=== PATIENT | female | born 1970 | race Caucasian/White ===

== ENCOUNTER 2018-10-21 05:17 | Day surgery (SDC) | payer OTHER ==
[~2018-10-21] VITALS: Ht 160 cm; Wt 99.8 kg
[~2018-10-21 05:17] MED LIST: COMBIVENT INH; EXCEDRIN MIGRA1 EAC1 PO; FLEXERIL PO; FLONASE 0.05%50 MCG NASAL; LIPITOR 20 MG T20 M1 PO; METFORMIN HCL500 MG PO; NEURONTIN 300300 M1 PO; OMEPRAZOLE40 MG PO; SYMBICORT160 MCG/4. INH; SYNTHROID100 MC1 PO; TOPROL XL100 MG PO; ZANTAC 150MG T150 MG PO; ZYRTEC10 MG PO
[2018-10-21 10:55] LABS: HEMATOCRIT 43.5 % (37.0-47.0); HEMOGLOBIN 14.9 gm/dL (12.0-15.0)
[2018-10-21 11:00] VITALS: BP 128/88
--- NOTE | 2018-10-21 13:28 | EKG ---
[address] [address] ELECTROCARDIOGRAM REPORT Name: PRETTY ARRIOLA Room #: [address] [place] [address].#: [id number] Admission: 10/21/18 Attend Phys: Cassandra Benson MD, Discharge: Date of : 72 Report #: [id number] THIS REPORT FOR: //name// [facility] Test Date: 2018-10-21 Test Time: 10:50:37 Pat Name: PRETTY ARRIOLA Department: Room: [facility] Gender: F Site Controller: NDIIA : 1970 Requested By: Cassandra Benson Order Number: [id number] MD: Daren Morgan Measurements Intervals [place] Rate: 64 P: 12 IN: 124 QRS: 17 QRSD: 99 T: -7 QT: 421 QTc: 435 Interpretive Statements Sinus rhythm Borderline abnrm T, anterolateral leads Baseline wander in lead(s) I,II,aVR,aVF No previous ECG available for comparison Electronically Signed On 10-21-2018 13:28:19 FLATWORK SUPERVISOR by Daren Morgan [email or web address] <ELECTRONICALLY SIGNED> By: Daren Morgan MD 10/21/18 1328 1050 1050 Daren Morgan MD /EPI
--- NOTE | 2018-10-21 14:52 | NUR ---
PT ARRIVED ON UNIT AT 1430. VS TAKEN IV FLUIDS STARED AND PRN PAIN MED AND N&V MED GIVEN IV PUSH. SISTER AT BEDSIDE
[2018-10-21 20:45] VITALS: BP 130/82
--- NOTE | 2018-10-22 02:56 | NUR ---
PT C/O GEN ABD PAIN,MED ADMINISTERED WITH RELIEF.PT UP ADLIB TO THE BR. ON IV ABX AND IVF ORDERED.ENCOURAGED TO USE I&S WHILE AWAKE.PT ABLE TO MAKE NEEDS KNOWN.CALL LIGHT WITHIN REACH.
--- NOTE | 2018-10-22 03:23 | NUR ---
PT UP ADLIB IN ROOM. ABD PAIN MANAGED WITH IV PAIN MED.5 LAP SITES WITH DERMABOND NOTED.PT NPO AT THIS TIME,MOUTH SWAB ENCOURAGED.PT ABLE TO URINATE 100ML FIRST FOUR HOURS AND STATED THAT SHE DOESN;T FEEL THE URGE TO URINATE SUSEQUENT TIMES.PT ABLE TO MAKE HER NEEDS KNOWN.CALL LIGHT WITHIN REACH.
[2018-10-22 05:42] LABS: HEMOGLOBIN 13.3 gm/dL (12.0-15.0); MCH 30.7 pg (26.0-34.0); MCV 90.1 fL (80.0-100.0); RBC 4.33 mil/uL (4.20-5.00); RDW 12.9 % (10.5-14.5); WBC 11.4 thou/uL (4.0-11.0)
[2018-10-22 06:12] LABS: CALCIUM 8.7 mg/dL (8.5-10.1); CREATININE 0.9 mg/dL (0.6-1.0); POTASSIUM 3.6 mmol/L (3.5-5.1)
[2018-10-22 06:14] VITALS: BP 107/6
[2018-10-22 08:08] VITALS: BP 113/74
--- NOTE | 2018-10-22 08:15 | NUR ---
RECEIVED BY APPROX 0700. A/O. ASSESMENT COMPLETED. VSS. PAIN MANAGED BY MEDS ORDERED. MEDS GIVEN ORDERED. PT RESTING IN BED AT THIS TIME. ENCOURAGED TO INCREASE AMBULATION. WILL CONT. TO MONITOR.
--- NOTE | 2018-10-22 08:52 | NUR ---
Discharge teaching completed with patient per Post Operative Gastrectomy Instruction Handout (see hard copy). Discharge teaching completed per Layla Gillespiedietitian per Post operative Diet Week 1(see hard copy), and Post Operative Diet Week 2 & 3(see hard copy). Patient states understanding,denies questions.
[2018-10-22 10:23] VITALS: BP 113/74
--- NOTE | 2018-10-22 12:38 | NUR ---
DC INSTRUCTIONS GIVEN TO PT. PT VERBALIZED UNDERSTANDING. PT TO DC HOME IN STABLE CONDITION.
--- NOTE | 2018-10-24 10:08 | PATH ---
[facility] [address] [place] [address] PATHOLOGY RPT PROCEDURE Name: ASHWINI ARRIOLA Room #: DEP [facility] M.R.#: [id number] Admission: 10/21/18 Date of : 72 Discharge: 10/22/18 Report #: [id number] Path Case #: [id number] [facility] Accession Number: [id number] . 01 Material submitted: . PORTION OF STOMACH . 01 Clinical history: . Morbid obesity . 02 Diagnosis: Stomach, portion of stomach, partial sleeve gastrectomy: - No diagnostic abnormalities present, history of morbid obesity. (IUV:jaime; 10/22/2018) MBR/10/22/2018 . 02 Electronically signed: . Mary Anne Shen MD, Pathologist NPI- [id number] . 01 Gross description: . The specimen is received in formalin, labeled "Ashwini Arriola, portion of stomach sleeve gastrectomy" and consists of a partial gastrectomy specimen closed with a line of lacie measuring 18.2 cm in length and ranging from 0.9-5.9 cm in diameter. The serosa is pink-hackett, shiny, and smooth. Opening reveals a pink-hackett mucosa with no masses or lesions. Shove Up sections are submitted in A1. (SDY; 10/21/2018) SYU/SYU . 02 Pathologist provided ICD-10: E66.01 . 02 CPT . 886353 Specimen Comment: A courtesy copy of this report has been sent to Specimen Comment: [phone], . Specimen Comment: Report sent to / DR KERN Specimen Comment: A duplicate report has been generated due to demographic updates. Performed at: 01 [facility] [address] [id number] MD Obi Escalona MD Phone: [phone] Performed at: [address] [id number] [address] [address] PATHOLOGY RPT PROCEDURE Name: ASHWINI ARRIOLA Room #: DEP [facility] M.R.#: [id number] Admission: 10/21/18 Date of : 72 Discharge: 10/22/18 Report #: [id number] Path Case #: [id number] MD Mary Anne Shen MD Phone: [phone]
--- NOTE | 2018-12-09 15:20 | O ---
[facility] [place] [address] OPERATIVE REPORT Name: PRETTY ARRIOLA Room #: [facility].#: [id number] Admission: 10/21/18 Attend Phys: Cassandra Benson MD, Discharge: 10/22/18 Date of : 72 Report #: [id number] THIS REPORT FOR: //name// CC: GABE physician/PCP Cassandra Benson DATE OF SERVICE: 10/21/2018 PREOPERATIVE DIAGNOSES: 1. Morbid obesity with a body mass index of greater than 40. 2. Hypertension. 3. Obstructive sleep apnea. 4. Lumbago. 5. Bilateral lower extremity joint pain. POSTOPERATIVE DIAGNOSES: 1. Morbid obesity with a body mass index of greater than 40. 2. Hypertension. 3. Obstructive sleep apnea. 4. Lumbago. 5. Bilateral lower extremity joint pain. PROCEDURES PERFORMED: 1. Laparoscopic sleeve gastrectomy. 2. Thorough esophagogastroduodenoscopy (EGD). SURGEON: Cassandra Benson MD PRODUCTION SHIFT SUPERVISOR: Edil Brown MD ANESTHESIA: General endotracheal anesthesia. ESTIMATED BLOOD LOSS: Minimal (less than 5 mL). COMPLICATIONS: None appreciated. SPECIMENS: Gastric sleeve resection specimen to pathology. INDICATIONS: The patient is a 48-year-old morbidly obese female who presented for evaluation for weight loss surgery as she has had a very long history of obesity and has tried numerous weight loss attempts, all to no avail. The patient has undergone a thorough multimodal workup including evaluation by her primary care physician, commercial hvac technician and psychologists who have all cleared her for bariatric surgery as well as indicating it is necessary for long-term weight loss and assistance with resolution of her comorbid conditions. After undergoing several month period of diet and exercise attempts under my direction [facility] [address] [place] [address] OPERATIVE REPORT Name: PRETTY ARRIOLA Room #: DEP [facility].#: [id number] Admission: 10/21/18 Attend Phys: Cassandra Benson MD, Discharge: 10/22/18 Date of : 72 Report #: [id number] with no real weight loss thus far, indication was for the above-mentioned procedures today. DESCRIPTION OF PROCEDURE: After explaining the risks, benefits and alternatives of the procedure with the patient in detail in the preoperative holding area and obtaining written consent, the patient was brought to the operating room and placed supine on the operating room table. After conducting a thorough timeout procedure verifying correct patient and procedure, the patient was given general endotracheal anesthesia. Once adequate anesthesia was obtained, her SCDs were hooked up to pneumatic compression device and she was given a preoperative dose of antibiotics in line with the SCIP protocol. The patient's abdomen was now prepped and draped in standard surgical sterile fashion after positioning her in the low lithotomy position with her legs in the Yellofin stirrups. I began the procedure by performing the EGD. The [employer] upper endoscope was used to intubate the oropharynx and was traversed down into the esophagus with ease. This was advanced to the second portion of the duodenum where slow careful withdrawal of the scope showed no evidence of duodenitis, gastritis, esophagitis, mass lesions or ulcerations. Retroflexion view of the scope within the gastric lumen showed no evidence of hiatal hernia. The scope was straightened out with its tip at the level of pylorus and was taped into position with the stomach being fully desufflated. After sterilely scrubbing, 5 mL of 0.5% Marcaine with epinephrine were used to anesthetize the skin in the right upper quadrant 5 cm cephalad to the umbilicus and 5 cm to the patient's right. A #15 bladed scalpel was used to create a 1.5 cm transverse incision at this location. A 15 mm Visiport was placed over 0 degree 5 mm laparoscope was introduced through this incision site. Once intra-abdominal placement was verified visually, the obturator for the trocar and laparoscope were both removed and the abdomen was insufflated to 15 mmHg using carbon dioxide gas. The laparoscope was changed to a 5-mm 30-degree laparoscope, which was reintroduced through this trocar, and an additional one was placed 5 cm lateral to that, final one was placed in the extreme left lateral flank. All three additional 5 mm ports were placed under direct vision after anesthetizing the skin at each location with 5 mL of 0.5% Marcaine with epinephrine. I then created small skin nicks using #15 bladed scalpel. Laparoscope was removed, changed the 5 mm port just cephalad to the umbilicus and the patient was placed in steep reverse Trendelenburg position. I now placed a Ciarra liver retractor in subxiphoid location by anesthetizing the skin at that location with 5 mL of 0.5% Marcaine with epinephrine and I created a small skin jacoby using #15 bladed scalpel. The Ciarra retractor was placed through this defect where it was maneuvered up under the left lobe of the liver and was held up against the posterior aspect of the anterior abdominal wall and was fixed into position using the iron hospitality internship device to stabilize it. We now had complete access to the stomach and hiatal regions and again saw no evidence of a hiatal hernia. We now started our dissection after identifying our landmarks. The vein of [place] was identified overlying the pylorus. I now measured 4 cm proximal to the pylorus, began taking down the short gastric arteries from this location all the way up [facility] [address] [place] [address] OPERATIVE REPORT Name: PRETTY ARRIOLA Room #: DEP [facility].#: [id number] Admission: 10/21/18 Attend Phys: Cassandra Benson MD, Discharge: 10/22/18 Date of : 72 Report #: [id number] to greater curvature of the stomach using Harmonic scalpel for hemostasis. Once I arrived upon the left kevin, I dissected anteriorly up the left kevin and reflected the stomach anteriorly, took down all posterior gastric attachments as well. We now started stapling portion of the procedure. The EGD scope was positioned to run along the lesser curvature of the stomach using the [place] 60 mm stapler with a black load and Castellanos's Jenae-Strip buttressing material placed over it and the stapler into the abdomen through the 15 mm trocar. This first firing started at the location 4 cm proximal to the pylorus and fired right along, but not extremely tight to the scope, so as not to cause stricturing especially at the incisura. An additional firing of another black load again utilizing Castellanos's Jenae-Strip buttressing material was carried out following the scope as a 34-Italian bougie. Five additional firings all of green loads all utilizing Castellanos's Jenae-Strip buttressing material were carried out following the scope as a bougie all the way up to the left kevin until the stomach was completely transected. This left an excellently oriented sleeve of gastric remnant with no twisting and complete hemostasis. The resection specimen was placed in the right upper quadrant for future retrieval, then 10 mL of Tisseel on the cloud.IQspray device was now used to coat the entirety of the staple line with fibrin glue. The resection specimen was now grasped and removed out of the abdomen through the 15 mm fascial incision under direct vision. I then closed the 15 mm fascial incision using 0 PDS suture on a Montez-Scott suture passer device under direct vision. The EGD scope was now reactivated and slowly withdrawn evaluating the staple line from the inside where we saw no evidence of bleeding whatsoever. Gentle insufflation of the sleeved stomach showed no evidence of bubbling on the staple line thereby signifying a negative leak test. Again there was no twisting to the sleeve specimen whatsoever. The scope was removed via the oropharynx, passed off the field. The Ciarra liver retractor was removed under direct vision. The liver was healthy and uninjured. One final evaluation of the intra-abdominal domain showed no further evidence of pathology. The abdomen was fully desufflated. All remaining trocars were removed under direct vision. A 4-0 Monocryl was used in a standard subcuticular fashion for all skin incisions and Dermabond glue was applied to all skin wounds. The corner of the resection specimen that had been removed was trimmed away and 1250 mL of normal saline was passively instilled into the resection specimen itself. At the end of the procedure, all instrument, needle and sponge counts were correct. The patient tolerated the procedure without incident, was awakened in the operating room and transitioned to the recovery room in stable condition with no apparent complications. <ELECTRONICALLY SIGNED> By: Cassandra Benson MD, FACS 12/09/18 1520 0710 0802 Cassandra Benson MD, FACS /nt
== END 2018-10-22 12:42 | disposition home or self-care (01) ==
LOC: OR 05:17 → TBA 05:21 → OR 06:38 → 4E 15:53 → ENTRNSPT 10-22 12:29 → EDTRNSPTSTS 10-22 12:31 → OR 10-22 12:42
PROVIDERS: Surgery
DX: E66.01 Morbid (severe) obesity due to excess calories (principal); I10 Essential (primary) hypertension; E78.00 Pure hypercholesterolemia, unspecified; G47.33 Obstructive sleep apnea (adult) (pediatric); M54.5 Low back pain; M79.661 Pain in right lower leg; M79.662 Pain in left lower leg; Z68.39 Body mass index [BMI] 39.0-39.9, adult; Z79.899 Other long term (current) drug therapy; Z79.891 Long term (current) use of opiate analgesic; Z98.890 Other specified postprocedural states
CPT/HCPCS: 10783; 50010; 50101; 50222; 50249; 50386; 50555; 50739; 50740; 50962; 51437; 52182; 52265; 53307; 53311; 54022; 54118; 56462; 56525; 56526; 57092; 62110; 62900; 70005